=== PATIENT | female | born 2000 | race Caucasian/White ===

== ENCOUNTER 2020-05-28 08:39 | Day surgery (SDC) | payer OTHER, SELFPAY ==
[2020-05-06 10:27] VITALS: BMI 22.3
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
--- NOTE | 2020-05-28 | UTC_PTH ---
PATIENT: KRISTEN REY [place]: [facility] [place] U#:[id number] AGE/SX: 19/F ROOM: RE05/28/[address]: Dr. Li Sebastian MD : 2000 BED: DIS: 05/28/2020 SPEC #: [id number] RECD: 05/28/20 11:53 STATUS: GLEN RESandra #: [id number] CHAYA: 05/28/20 00:[address]: Li Sebastian DEPT: SURGICAL PATHOLOGY RECD BY: Gal Mercado ENTERED: 05/28/20 11:54 SP TYPE: EVAN GLORIA DR: No Primary Care Phys Tissues: Uterine cervix, NOS Procedures: Surgery Specimen Level IV HEADER OPERATION: Diagnostic laparoscopy, chromotubation, hysteroscopy, D & C PRE-OP DIAGNOSIS: Dysmenorrhea, abnormal uterine bleeding, PMDD endometriosis TISSUE SUBMITTED: Uterine curettings MICROSCOPIC DIAGNOSIS Endometrium, curettings: Secretory endometrium. Rare benign desquamated squamous epithelial cells. AM:thong 05/29/20 MICROSCOPIC DESCRIPTION Slides are reviewed. GROSS DESCRIPTION Received in fixative is one container labeled with the patient's name and designated uterine curettings. The specimen consists of multiple fragments of hemorrhagic soft tissue that in aggregate measure 3 x 2.5 x 0.3 cm. The specimen is totally submitted in one cassette. / SJ:thong 05/28/20 TC:5 CPT: 46231
[2020-05-28] MEDS: Levonorgestrel IUD (Liletta) 1 EACH IY (07:00)
[2020-05-28 09:07] VITALS: BP 114/80; PULSE 112; RESP 16; TEMP 37; O2SAT 99; BMI 22.6
[2020-05-28 09:14] LABS: Internal QC Validated? YES +Cl - CLEAR BKGD; Pregnancy, Urine Negative Negative
[2020-05-28] MEDS: Lactated Ringers 1,000 ML 100 ML IV ×2 (09:14→10:31)
[2020-05-28 09:16] LABS: Hematocrit 43.6 % (37-47); Hemoglobin 15.1 g/dL (12.0-15.0); Mean Corp Hgb Conc 34.6 g/dL (32-36); Mean Corpuscular Hgb 30.7 pg (27.0-32.0); Mean Corpuscular Volume 88.6 fL (81-99); Mean Platelet Vol. 9.7 fl (6.2-12.0); Platelet Count 212 K/mm3 (150-450); RBC Distribution Width CV 12.2 % (11.6-14.6); RBC Distribution Width SD 39.8 fl (35.1-43.9); Red Blood Count 4.92 M/mm3 (4.2-5.4); White Blood Count 7.1 K/mm3 (4.4-11.0)
--- NOTE | 2020-05-28 09:22 | OP.PCM_ITS ---
Problem List (1) Abnormal uterine bleeding Status: Acute Comment: see other A/P info (2) Dysmenorrhea Status: Acute Comment: failed iud and 4 ocps. plan diagnostic laparoscopy possible CO2 laser ablation, chromotubation, d and c hysteroscopy, cystoscopy. Co2 ref#[id number] (3) PMDD (premenstrual dysphoric disorder) Status: Acute Comment: failed ocps. plan surgery and then nuvaring continuous or IUD Report of Operation Date of Procedure: 05/28/20 Pre-Operative Diagnosis: chronic pelvic pain Post-Operative Diagnosis: Bilateral ovarian cysts Surgery/Procedure Performed:: d and c hysterosocpy diagnostic laparoscopy chromotubation cystoscopy Description of Surgical Findings:: Bilateral multicystic ovarian appearance with the right ovary enlarged significantly. Mild left sigmoid colon adhesions. Type of Anesthesia:: General Special Medications: toradol and madeleine Specimen's removed: emc Drains: none Estimated Blood Loss (mL): minimal Fluids Replaced: crystalloid Description of Procedure: Patient was taken to the operating room and placed under general anesthesia. She was prepped and draped in the normal sterile fashion in the dorsolithotomy position. Bladder drained of clear urine and uterus sounded and uterine manipulator inserted without difficulty. Attention was then paid to the abdominal portion and the base of the umbilicus was injected with Marcaine and using toe clamps the periumbilical area was elevated and a 5 mm stab incision was made at the base of the umbilicus and varies needle entered into the abdomen confirmed to be intra-abdominal with an opening pressure of less than 5 mmHg pressure. Abdomen was insufflated with CO2 gas until 15 mmHg pressure was obtained. 5 mm Optiview trocar was inserted under direct visualization in the pelvis and upper abdomen were well visualized. Uterus and fallopian tubes were inspected and noted to be within normal limits. Bilateral ovaries were noted to be significantly enlarged with the right significantly larger than the left with a polycystic appearance. Ovarian drilling cystotomies were performed bilaterally to drain multiple serous benign-appearing cysts. Small left sigmoid colon to pelvic sidewall adhesions were also noted and taken down sharply to res tore normal anatomy. Madeleine was applied over these areas. Anterior and posterior broad ligament and bilateral ovarian fossa's were identified and noted to be within normal limits. Methylene blue that was diluted was then inserted intrauterine to visualize intra-abdominal spill which was confirmed bilaterally with fallopian tube patency seen on both sides. Abdomen was desufflated of gas and all instruments removed from the abdomen and the vagina. Using 4-0 Monocryl erupted stitch was placed at the base of the umbilicus and OpSite placed over top. Attention to the vaginal portion of the procedure was then made with dilating the cervix to allow passage of a 5 mm hysteroscope which the uterine lining was noted to be within normal limits with no gross abnormalities. Sharp curettage was performed and sent to pathology for analysis. Liletta IUD was inserted into the uterine cavity without complication and the strings trimmed to 3 cm from the endocervical office. Cystoscopy was then performed by filling the bladder and visualizing bilateral strong ureteral spray and the entire lining was visualized to be with normal limits. Bladder was drained after being over distended and then refilled in the bladder lining visualized again and noted to be within normal limits with no gross abnormalities. All instruments removed from the patient and patient was awoken and taken recovery in stable condition. Grafts/Implants Used: iud liletta - Complications none - Admit VTE Documentation VTE Present on Admission: No VTE Mechan Device Prophylaxis: SCD's Multi Select Codes - Urinary/Genital Urinary/Genital CPT Codes: 42435 Cystoscopy, 67497 Insert IUD, 21442 Chromotubation, 17369 Hysteroscopy,EMC, Polypectomy, Other Procedure See Report - 74209
--- NOTE | 2020-05-28 09:25 | DCINST_ITS ---
Discharge Diet: No Restrictions - Increase fluid intake for the next 48 hours. Discharge Activity: Return to Normal Activity, May Drive - when you are no longer taking narcotic pain medications., May Shower, May Take a Tub Bath - in 7 days Additional Activity Instructions:: Ambulate often the next week after surgery. Nothing in the vagina for 5 days. Call your doctor if your incision/area has: Continuous Slow Oozing, Sudden Increased Bleeding, Increased Pain/ Swelling, Increased Redness, Foul Smelling Discharge Call your doctor if you observe: Fever of 101 or Higher Allergies/Adverse Reactions: Allergies latex Allergy (Verified 05/28/20 08:51) Rash Medications to take at Discharge budesonide-formoterol HFA 80 mcg-4.5 mcg/actuation aerosol inhaler 2 puff INHALATION BID PRN 05/06/20 norgestimate-ethinyl estradiol 1 tab PO DAILY 05/06/20 Naproxen [Naprosyn] 250 - 500 mg PO Q8H PRN PRN #30 tab 05/28/20 Oxycodone HCl/Acetaminophen [Percocet 5-325] 1 - 2 tablet PO Q6H PRN PRN 7 Days #15 tablet 05/28/20 busPIRone [Buspar] 5 mg PO DAILY 05/28/20 The following prescriptions were given: Naproxen [Naprosyn] 250 - 500 mg PO Q8H PRN PRN #30 tab PRN Reason: MILD PAIN Transmission Status: Pending to [facility] Oxycodone HCl/Acetaminophen [Percocet 5-325] 1 - 2 tablet PO Q6H PRN PRN 7 Days #15 tablet PRN Reason: Pain Transmission Status: Sent to [facility] Orders to be completed after discharge: Type & Screen - PAT ONLY Time Frame: 05/28/20, Facility: [facility], Location: Laboratory Primary Care Physician: Care Physician,No Primary [Primary Care Provider] - Test Results: Test results from this visit will be discussed in further detail at your follow- up appointment, if applicable. Please Follow Up With: Li Sebastian MD - [phone]
[2020-05-28] MEDS: Cefazolin 2 GM in 0.9% Normal Saline 100 ML IV (10:00)
[2020-05-28] MEDS: Bupivacaine 0.25% 30 ML Vial (10:15)
[2020-05-28 11:02] VITALS: BP 114/80; BP 115/82; PULSE 74; RESP 16; TEMP 36.6; O2SAT 95
[2020-05-28 11:15] VITALS: BP 112/79; BP 114/80; PULSE 69; RESP 16; O2SAT 99
[2020-05-28 11:30] VITALS: BP 114/80; BP 116/77; PULSE 63; RESP 16; TEMP 36.7; O2SAT 100
[2020-05-28] MEDS: HYDROcodone Bitartrate/Apap 5/325 Tablet PO (11:51)
[2020-05-28 12:42] VITALS: BP 106/65; BP 114/80; PULSE 67; RESP 16; TEMP 36.4; O2SAT 98
== END 2020-05-28 12:51 | disposition home or self-care (01) ==
LOC: SDC 08:41 → AC 08:42
PROVIDERS: Anesthesiology; Referring Provider Obstetrics & Gynecology; Visit Provider Obstetrics & Gynecology
PROC: (CPT 49320; principal; 2020-05-28 09:50)
DX: N83.201 Unspecified ovarian cyst, right side (principal); N83.202 Unspecified ovarian cyst, left side; N93.9 Abnormal uterine and vaginal bleeding, unspecified; R10.2 Pelvic and perineal pain; G89.29 Other chronic pain; N94.6 Dysmenorrhea, unspecified; F32.81 Premenstrual dysphoric disorder; Z87.891 Personal history of nicotine dependence
CPT/HCPCS: 45381; 58558; 81025; 85027; 86850; 86900; 86901; 87635; 88305; C9803; J7120; J2405; Q9968; U0003

== ENCOUNTER → 2021-04-10 16:39 | Outpatient (CLI) | payer OTHER, SELFPAY ==
[2021-04-10 15:54] VITALS: BMI 22.6
== END ==
PROVIDERS: Referring Provider Nurse Practitioner Women's Health; Visit Provider Nurse Practitioner Women's Health
DX: R30.0 Dysuria (principal)
CPT/HCPCS: 87077; 87086; 87088

== ENCOUNTER → 2021-05-09 16:06 | Outpatient (CLI) | payer OTHER, SELFPAY ==
[2021-05-01 15:08] VITALS: BMI 22.6
--- NOTE | 2021-05-09 16:08 | US_ITS ---
STUDY: ULTRASOUND OF THE FEMALE PELVIS - COMPLETE REASON FOR EXAM: Female, 20 years old. pain LMP: Pelvic pain TECHNIQUE: Transabdominal and Transvaginal TECHNICAL QUALITY: Adequate. COMPARISON: None. FINDINGS: The uterus is anteverted and is in a midline position. The uterus measures 7.7 x 5.3 x 4.7 cm. Normal uterine cervix. The endometrium measures 5 mm in thickness, and is hyperechoic. There is no demonstrated endometrial mass. There is no demonstrated myometrial mass. I.U.D. - The patient does have an I.U.D. The right ovary is visualized. The right ovary measures 2.9 x 3.5 x 2.4 cm. There is no right ovarian cyst or ovarian mass. There is no visualized right adnexal mass or complex lesion. There is normal arterial and normal venous vascularity. The left ovary is visualized. The left ovary measures 3.8 x 2.7 x 2.4 cm. There is no left ovarian cyst or ovarian mass. There is no visualized left adnexal mass or complex lesion. There is normal arterial and normal venous vascularity. There is no fluid in the cul-de-sac. The pre void volume of the bladder was ml. The post void volume of the bladder was ml. Polycystic ovary disease: No. US/Pelvic (Non ) IMPRESSION: Normal female pelvis. Electronically Signed: Johny Lanza MD at 7:43 EDT Tel , Service support ,
--- NOTE | 2021-05-09 16:08 | US_ITS ---
STUDY: ULTRASOUND OF THE FEMALE PELVIS - COMPLETE REASON FOR EXAM: Female, 20 years old. pain LMP: Pelvic pain TECHNIQUE: Transabdominal and Transvaginal TECHNICAL QUALITY: Adequate. COMPARISON: None. FINDINGS: The uterus is anteverted and is in a midline position. The uterus measures 7.7 x 5.3 x 4.7 cm. Normal uterine cervix. The endometrium measures 5 mm in thickness, and is hyperechoic. There is no demonstrated endometrial mass. There is no demonstrated myometrial mass. I.U.D. - The patient does have an I.U.D. The right ovary is visualized. The right ovary measures 2.9 x 3.5 x 2.4 cm. There is no right ovarian cyst or ovarian mass. There is no visualized right adnexal mass or complex lesion. There is normal arterial and normal venous vascularity. The left ovary is visualized. The left ovary measures 3.8 x 2.7 x 2.4 cm. There is no left ovarian cyst or ovarian mass. There is no visualized left adnexal mass or complex lesion. There is normal arterial and normal venous vascularity. There is no fluid in the cul-de-sac. The pre void volume of the bladder was ml. The post void volume of the bladder was ml. Polycystic ovary disease: No. US/Transvaginal Non- IMPRESSION: Normal female pelvis. Electronically Signed: Johny Lanza MD at 7:43 EDT Tel , Service support ,
== END ==
LOC: OPUS 16:07
PROVIDERS: Referring Provider Nurse Practitioner Women's Health; Visit Provider Nurse Practitioner Women's Health
DX: R10.2 Pelvic and perineal pain (principal); Z87.42 Personal history of other diseases of the female genital tract
CPT/HCPCS: 76830; 76856; 93976